=== PATIENT | male | born 1975 ===

== ENCOUNTER → 2023-07-02 | Day surgery (SDC) | payer OTHER | END | disposition home or self-care (01) | LOC: ADM 06-28 09:45 → CIR.AMB 05:57 | PROVIDERS: ATTEND Surgery | DX: K43.6 Other and unspecified ventral hernia with obstruction, without gangrene (principal); Z20.822 Contact with and (suspected) exposure to COVID-19; Z88.6 Allergy status to analgesic agent | CPT/HCPCS: 49594; C1781 ==